=== PATIENT | male | born 1940 | race Caucasian/White ===

== ENCOUNTER 2021-07-31 02:09 | Inpatient (IN) | payer MEDICARE ==
[2021-07-31] MEDS ORDERED: Dextrose 5% in Water 1,000 ML IV PRN (02:34)
[2021-07-31] MEDS ORDERED: HumaLOG 300 UNITS/3 ML VIAL SC PRN (02:34)
[2021-07-31] MEDS ORDERED: Calcium Carbonate 500 MG ChewTAB PO PRN (02:34)
[2021-07-31] MEDS ORDERED: Dextrose 50% Abboject 50 ML SYRINGE SLOW IVP PRN (02:34)
[2021-07-31] MEDS ORDERED: Ondansetron PF 4 MG/2 ML Vial IVP PRN (02:34)
[2021-07-31] MEDS ORDERED: Guaifenesin DM 100-10/5 ML UDCUP PO PRN (02:34)
[2021-07-31] MEDS ORDERED: Potassium Chloride 20 MEQ TAB PO SCH (03:00)
[2021-07-31 03:44] LABS: #Monocytes 1.6 10x3/uL (0.0-1.1); #Neutrophils 10.6 10x3/uL (1.5-8.4); %Basophils 0.2 % (0.0-2.0); %Lymphocytes 7.4 % (18.0-47.0); %Neutrophils 79.9 % (40.0-75.0); Hemoglobin 14.1 g/dL (13.5-17.5); Mean Corpuscular HGB CONC 31.7 g/dL (32.0-36.0); Mean Corpuscular Hemoglobin 28.4 pg (27.0-33.0); Mean Corpuscular Volume 89.7 fl (81.2-95.1); Mean Platelet Volume 11.1 fl (7.4-10.4); Platelet Count 341 10x3/uL (150-450); Red Blood Cell (RBC) Count 4.96 10x6/uL (4.32-5.72); White Blood Cell (WBC) Count 13.2 10x3/uL (3.5-10.5)
[2021-07-31] MEDS: NS 0.9% w/ 20 MEQ KCL 1,000 ML/1,000 ML BAG IV SCH ×3 (03:51→21:49)
[2021-07-31 03:52] LABS: Lactic Acid 2.7 mmol/L (0.5-2.2)
[2021-07-31 04:01] LABS: ALT (SGPT) 10 U/L (8-55); AST (SGOT) 18 U/L (5-34); Albumin 3.9 g/dL (3.4-4.8); Alkaline Phosphatase 63 U/L (40-110); Anion Gap 19 mmol/L (10-20); BUN (Urea Nitrogen) 19 mg/dL (8.4-25.7); CK (CPK) 85 U/L (30-200); Calc. Creatinine Clearance 96 mL/min (70-130); Calcium 8.9 mg/dL (7.8-10.44); Carbon Dioxide 21 mmol/L (23-31); Chloride 102 mmol/L (98-107); Globulin 3.5 g/dL (2.4-3.5); Glucose 172 mg/dL (83-110); Magnesium 1.7 mg/dL (1.6-2.6); Potassium 3.3 mmol/L (3.5-5.1); Protein, Total 7.4 g/dL (5.8-8.1); Sodium 139 mmol/L (136-145)
[2021-07-31 04:24] LABS: CKMB 1.3 ng/mL (0-6.6)
[2021-07-31] MEDS: Potassium Chloride 10 MEQ in Premix Bag 1 BAG IVPB SCH ×3 (04:35→06:49)
[2021-07-31 04:57] VITALS: BMI 21.9
[2021-07-31] MEDS: Gabapentin 100 MG CAP PO SCH ×2 (09:00→10:42)
[2021-07-31] MEDS: Famotidine/PF 20 mg/2ml Vial SLOW IVP SCH ×2 (09:01→21:50)
[2021-07-31] MEDS: Carvedilol 6.25 MG TAB PO SCH ×3 (09:01→16:18)
[2021-07-31] MEDS: Enoxaparin Sodium 40 MG/0.4 ML SYRINGE SC SCH (09:01)
[2021-07-31] MEDS: Aspirin 81 mg Enteric Coated Tablet PO SCH ×2 (09:01→10:42)
[2021-07-31] MEDS: Cefepime 1 GM in Sodium Chloride 0.9% 100 ML IVPB SCH ×2 (09:02→21:50)
[2021-07-31 13:42] LABS: Anion Gap 17 mmol/L (10-20); BUN (Urea Nitrogen) 19 mg/dL (8.4-25.7); Calc. Creatinine Clearance 59 mL/min (70-130); Calcium 8.1 mg/dL (7.8-10.44); Carbon Dioxide 19 mmol/L (23-31); Chloride 107 mmol/L (98-107); Glucose 138 mg/dL (83-110); Magnesium 1.7 mg/dL (1.6-2.6); Potassium 3.7 mmol/L (3.5-5.1); Sodium 139 mmol/L (136-145)
[2021-07-31] MEDS ORDERED: Magnesium 2 GM/50 ML 2 GM in Premix Bag 1 BAG IVPB SCH (14:15)
[2021-07-31] MEDS ORDERED: Sodium Bicarb 50 MEQ/50 ML Abboject 8.4% SYRINGE IVP SCH (15:00)
[2021-07-31] MEDS ORDERED: NS 0.9% w/ 20 MEQ KCL 1,000 ML ONE (16:08)
[2021-07-31 16:22] LABS: Lactic Acid 1.9 mmol/L (0.5-2.2)
[2021-07-31] MEDS: hydrALAZINE 20 MG/ML VIAL SLOW IVP PRN (19:01)
[2021-07-31] MEDS: Vancomycin HCl 1 GM in Sodium Chloride 0.9% 250 ML 250 ML IVPB SCH (21:49)
[2021-07-31] MEDS: Atorvastatin Calcium 10 MG TAB PO SCH (21:50)
[2021-07-31] MEDS: Montelukast Sodium 10 mg Tablet PO SCH (21:50)
[2021-08-01] MEDS: hydrALAZINE 20 MG/ML VIAL SLOW IVP PRN (07:20)
[2021-08-01 08:20] LABS: #Basophils 0.1 10x3/uL (0.0-0.2); #Monocytes 1.5 10x3/uL (0.0-1.1); #Neutrophils 10.1 10x3/uL (1.5-8.4); %Basophils 0.4 % (0.0-2.0); %Lymphocytes 9.1 % (18.0-47.0); %Monocytes 11.7 % (0.0-10.0); %Neutrophils 78.3 % (40.0-75.0); Hemoglobin 12.8 g/dL (13.5-17.5); Mean Corpuscular HGB CONC 31.4 g/dL (32.0-36.0); Mean Corpuscular Hemoglobin 28.6 pg (27.0-33.0); Mean Corpuscular Volume 91.1 fl (81.2-95.1); Mean Platelet Volume 10.9 fl (7.4-10.4); Platelet Count 259 10x3/uL (150-450); RBC Distribution Width 19.5 % (11.5-14.5); Red Blood Cell (RBC) Count 4.47 10x6/uL (4.32-5.72); White Blood Cell (WBC) Count 12.9 10x3/uL (3.5-10.5)
[2021-08-01] MEDS: Cefepime 1 GM in Sodium Chloride 0.9% 100 ML IVPB SCH ×2 (08:30→21:00)
[2021-08-01 08:31] LABS: ALT (SGPT) 16 U/L (8-55); AST (SGOT) 29 U/L (5-34); Albumin 3.4 g/dL (3.4-4.8); Alkaline Phosphatase 44 U/L (40-110); Anion Gap 19 mmol/L (10-20); BUN (Urea Nitrogen) 17 mg/dL (8.4-25.7); Bilirubin, Total 0.8 mg/dL (0.2-1.2); Calc. Creatinine Clearance 66 mL/min (70-130); Calcium 8.3 mg/dL (7.8-10.44); Carbon Dioxide 19 mmol/L (23-31); Chloride 111 mmol/L (98-107); Globulin 2.9 g/dL (2.4-3.5); Glucose 105 mg/dL (83-110); Magnesium 2.2 mg/dL (1.6-2.6); Potassium 4.1 mmol/L (3.5-5.1); Protein, Total 6.3 g/dL (5.8-8.1); Sodium 145 mmol/L (136-145)
[2021-08-01] MEDS: Enoxaparin Sodium 40 MG/0.4 ML SYRINGE SC SCH (08:31)
[2021-08-01] MEDS: Gabapentin 100 MG CAP PO SCH (08:31)
[2021-08-01] MEDS: Aspirin 81 mg Enteric Coated Tablet PO SCH (08:31)
[2021-08-01] MEDS: Carvedilol 6.25 MG TAB PO SCH (08:31)
[2021-08-01] MEDS: NS 0.9% w/ 20 MEQ KCL 1,000 ML/1,000 ML BAG IV SCH (08:31)
[2021-08-01] MEDS: Famotidine/PF 20 mg/2ml Vial SLOW IVP SCH ×2 (08:31→21:46)
[2021-08-01] MEDS: Amlodipine 10 MG TAB PO SCH (09:14)
[2021-08-01] MEDS: Carvedilol 12.5 MG TAB PO SCH (16:25)
[2021-08-01] MEDS ORDERED: Sodium Chloride 0.9% 1,000 ML IV SCH (17:00)
[2021-08-01 20:23] LABS: Vancomycin, Trough 8.1 ug/mL
[2021-08-01] MEDS: Montelukast Sodium 10 mg Tablet PO SCH (21:52)
[2021-08-01] MEDS: Atorvastatin Calcium 10 MG TAB PO SCH (21:52)
[2021-08-01] MEDS: Vancomycin 1.5 GRAM/300 ML BAG 1.5 GM in Premix Bag 1 BAG IVPB SCH (22:00)
[2021-08-01] MEDS: Vancomycin HCl 1 GM in Sodium Chloride 0.9% 250 ML 250 ML IVPB SCH (22:02)
[2021-08-02] MEDS: hydrALAZINE 20 MG/ML VIAL SLOW IVP PRN ×4 (00:54→22:30)
[2021-08-02 06:26] LABS: Anion Gap 17 mmol/L (10-20); BUN (Urea Nitrogen) 15 mg/dL (8.4-25.7); Calc. Creatinine Clearance 70 mL/min (70-130); Calcium 8.6 mg/dL (7.8-10.44); Carbon Dioxide 21 mmol/L (23-31); Chloride 111 mmol/L (98-107); Glucose 97 mg/dL (83-110); Magnesium 2.1 mg/dL (1.6-2.6); Potassium 3.5 mmol/L (3.5-5.1); Sodium 145 mmol/L (136-145)
[2021-08-02 06:37] LABS: #Monocytes 1.2 10x3/uL (0.0-1.1); #Neutrophils 9.3 10x3/uL (1.5-8.4); %Basophils 0.3 % (0.0-2.0); %Lymphocytes 12.4 % (18.0-47.0); %Neutrophils 76.7 % (40.0-75.0); Hemoglobin 12.7 g/dL (13.5-17.5); Mean Corpuscular HGB CONC 31.4 g/dL (32.0-36.0); Mean Corpuscular Hemoglobin 28.2 pg (27.0-33.0); Mean Platelet Volume 10.1 fl (7.4-10.4); Platelet Count 378 10x3/uL (150-450); RBC Distribution Width 18.7 % (11.5-14.5); White Blood Cell (WBC) Count 12.1 10x3/uL (3.5-10.5)
[2021-08-02] MEDS: Famotidine/PF 20 mg/2ml Vial SLOW IVP SCH ×2 (08:31→22:00)
[2021-08-02] MEDS: Cefepime 1 GM in Sodium Chloride 0.9% 100 ML IVPB SCH ×2 (08:31→20:23)
[2021-08-02] MEDS: Enoxaparin Sodium 40 MG/0.4 ML SYRINGE SC SCH (08:31)
[2021-08-02] MEDS: Carvedilol 12.5 MG TAB PO SCH ×2 (08:35→16:48)
[2021-08-02] MEDS: Gabapentin 100 MG CAP PO SCH (08:35)
[2021-08-02] MEDS: Amlodipine 10 MG TAB PO SCH (08:35)
[2021-08-02] MEDS: Aspirin 81 mg Enteric Coated Tablet PO SCH (08:35)
[2021-08-02] MEDS ORDERED: Potassium Chloride 40 MEQ in Dextrose 5%-Lactated Ringers 1,000 ML IV SCH (17:00)
[2021-08-02] MEDS: Montelukast Sodium 10 mg Tablet PO SCH (22:00)
[2021-08-02] MEDS: Atorvastatin Calcium 10 MG TAB PO SCH (22:00)
[2021-08-02] MEDS: Vancomycin 1.5 GRAM/300 ML BAG 1.5 GM in Premix Bag 1 BAG IVPB SCH (22:46)
[2021-08-03] MEDS: Labetalol HCl 100 MG/20 ML VIAL SLOW IVP PRN ×3 (01:10→11:51)
[2021-08-03 06:09] LABS: #Monocytes 0.9 10x3/uL (0.0-1.1); #Neutrophils 5.4 10x3/uL (1.5-8.4); %Basophils 0.4 % (0.0-2.0); %Eosinophils 0.4 % (0.0-6.0); %Lymphocytes 13.3 % (18.0-47.0); %Monocytes 12.1 % (0.0-10.0); %Neutrophils 72.5 % (40.0-75.0); Hemoglobin 11.4 g/dL (13.5-17.5); Mean Corpuscular HGB CONC 32.7 g/dL (32.0-36.0); Mean Corpuscular Hemoglobin 28.7 pg (27.0-33.0); Mean Corpuscular Volume 87.9 fl (81.2-95.1); Mean Platelet Volume 10.1 fl (7.4-10.4); Platelet Count 278 10x3/uL (150-450); Red Blood Cell (RBC) Count 3.97 10x6/uL (4.32-5.72); White Blood Cell (WBC) Count 7.4 10x3/uL (3.5-10.5)
[2021-08-03 06:30] LABS: ALT (SGPT) 19 U/L (8-55); AST (SGOT) 28 U/L (5-34); Albumin 3.1 g/dL (3.4-4.8); Alkaline Phosphatase 43 U/L (40-110); Anion Gap 17 mmol/L (10-20); BUN (Urea Nitrogen) 16 mg/dL (8.4-25.7); Bilirubin, Total 0.9 mg/dL (0.2-1.2); Calc. Creatinine Clearance 72 mL/min (70-130); Calcium 8.3 mg/dL (7.8-10.44); Carbon Dioxide 18 mmol/L (23-31); Chloride 118 mmol/L (98-107); Globulin 2.6 g/dL (2.4-3.5); Glucose 129 mg/dL (83-110); Magnesium 1.9 mg/dL (1.6-2.6); Potassium 3.5 mmol/L (3.5-5.1); Protein, Total 5.7 g/dL (5.8-8.1); Sodium 149 mmol/L (136-145)
[2021-08-03] MEDS: Cefepime 1 GM in Sodium Chloride 0.9% 100 ML IVPB SCH ×3 (10:22→19:57)
[2021-08-03] MEDS: Enoxaparin Sodium 40 MG/0.4 ML SYRINGE SC SCH (10:28)
[2021-08-03] MEDS: Aspirin 81 mg Enteric Coated Tablet PO SCH ×2 (10:29→11:25)
[2021-08-03] MEDS: Amlodipine 10 MG TAB PO SCH ×2 (10:29→11:25)
[2021-08-03] MEDS: Famotidine/PF 20 mg/2ml Vial SLOW IVP SCH ×2 (10:29→21:00)
[2021-08-03] MEDS: Gabapentin 100 MG CAP PO SCH ×2 (10:29→11:25)
[2021-08-03] MEDS: Carvedilol 12.5 MG TAB PO SCH ×3 (10:30→12:12)
[2021-08-03] MEDS: Potassium Chloride 40 MEQ in Dextrose 5%-Lactated Ringers 1,000 ML IV SCH ×2 (11:51→22:36)
[2021-08-03] MEDS ORDERED: Labetalol HCl 100 MG/20 ML VIAL SLOW IVP SCH (14:00)
[2021-08-03] MEDS: Nystatin 500,000 UNITS/5 ML UDCUP SSW SCH ×3 (14:08→22:14)
[2021-08-03] MEDS ORDERED: hydrALAZINE 20 MG/ML VIAL SLOW IVP SCH (14:15)
[2021-08-03] MEDS: Carvedilol 25 MG TAB PO SCH (17:51)
[2021-08-03 21:17] LABS: Vancomycin, Trough 16.9 ug/mL
[2021-08-03] MEDS: Vancomycin 1.5 GRAM/300 ML BAG 1.5 GM in Premix Bag 1 BAG IVPB SCH (22:11)
[2021-08-03] MEDS: Montelukast Sodium 10 mg Tablet PO SCH (22:14)
[2021-08-03] MEDS: Atorvastatin Calcium 10 MG TAB PO SCH (22:14)
[2021-08-04] MEDS: Labetalol HCl 100 MG/20 ML VIAL SLOW IVP PRN (01:50)
[2021-08-04 05:09] LABS: #Basophils 0.1 10x3/uL (0.0-0.2); #Eosinphils 0.2 10x3/uL (0.0-0.5); #Monocytes 0.7 10x3/uL (0.0-1.1); #Neutrophils 3.7 10x3/uL (1.5-8.4); %Eosinophils 4.2 % (0.0-6.0); %Lymphocytes 17.8 % (18.0-47.0); %Monocytes 12.1 % (0.0-10.0); %Neutrophils 64.4 % (40.0-75.0); Hemoglobin 10.6 g/dL (13.5-17.5); Mean Corpuscular HGB CONC 31.3 g/dL (32.0-36.0); Mean Corpuscular Hemoglobin 28.6 pg (27.0-33.0); Mean Corpuscular Volume 91.4 fl (81.2-95.1); Mean Platelet Volume 10.5 fl (7.4-10.4); Platelet Count 300 10x3/uL (150-450); RBC Distribution Width 18.9 % (11.5-14.5); Red Blood Cell (RBC) Count 3.71 10x6/uL (4.32-5.72); White Blood Cell (WBC) Count 5.7 10x3/uL (3.5-10.5)
[2021-08-04 05:11] LABS: Anion Gap 13 mmol/L (10-20); BUN (Urea Nitrogen) 10 mg/dL (8.4-25.7); Calc. Creatinine Clearance 75 mL/min (70-130); Calcium 8.2 mg/dL (7.8-10.44); Carbon Dioxide 21 mmol/L (23-31); Chloride 118 mmol/L (98-107); Glucose 144 mg/dL (83-110); Magnesium 1.8 mg/dL (1.6-2.6); Potassium 3.7 mmol/L (3.5-5.1); Sodium 148 mmol/L (136-145)
[2021-08-04] MEDS: Aspirin 81 mg Enteric Coated Tablet PO SCH (08:27)
[2021-08-04] MEDS: Amlodipine 10 MG TAB PO SCH (08:27)
[2021-08-04] MEDS: Carvedilol 25 MG TAB PO SCH ×2 (08:27→16:01)
[2021-08-04] MEDS: Gabapentin 100 MG CAP PO SCH (08:28)
[2021-08-04] MEDS: Nystatin 500,000 UNITS/5 ML UDCUP SSW SCH ×3 (08:28→16:01)
[2021-08-04] MEDS: Cefepime 1 GM in Sodium Chloride 0.9% 100 ML IVPB SCH (09:26)
[2021-08-04] MEDS: Enoxaparin Sodium 40 MG/0.4 ML SYRINGE SC SCH (09:26)
[2021-08-04] MEDS: Famotidine/PF 20 mg/2ml Vial SLOW IVP SCH ×2 (09:26→22:31)
[2021-08-04] MEDS ORDERED: HYDROcodone/Acetaminophen 5/325 mg Tablet PO PRN (12:23)
[2021-08-04] MEDS ORDERED: Multivitamins, Adult 10 ML, Folic Acid 1 MG, Thiamine HCl 100 MG in Dextrose 5 %-0.45 %... IV SCH (12:30)
[2021-08-04] MEDS: Multivitamins, Adult 10 ML, Folic Acid 1 MG, Thiamine HCl 100 MG in Dextrose 5 %-0.45 %... IV SCH (14:41)
[2021-08-04] MEDS: Montelukast Sodium 10 mg Tablet PO SCH (22:32)
[2021-08-04] MEDS: Atorvastatin Calcium 10 MG TAB PO SCH (22:32)
[2021-08-05] MEDS: Nystatin 500,000 UNITS/5 ML UDCUP SSW SCH ×5 (04:03→20:17)
[2021-08-05] MEDS ORDERED: Lactated Ringer's 1,000 ML IV SCH (05:15)
[2021-08-05] MEDS: Carvedilol 25 MG TAB PO SCH ×3 (09:41→16:42)
[2021-08-05] MEDS: Enoxaparin Sodium 40 MG/0.4 ML SYRINGE SC SCH (09:41)
[2021-08-05] MEDS: Amlodipine 10 MG TAB PO SCH ×2 (09:41→14:26)
[2021-08-05] MEDS: Aspirin 81 mg Enteric Coated Tablet PO SCH ×2 (09:41→14:27)
[2021-08-05] MEDS: Gabapentin 100 MG CAP PO SCH (09:42)
[2021-08-05] MEDS: Famotidine/PF 20 mg/2ml Vial SLOW IVP SCH ×2 (09:42→20:03)
[2021-08-05] MEDS: chlordiazePOXIDE HCl 5 MG CAP PO SCH ×2 (14:24→20:04)
[2021-08-05] MEDS: Multivitamins, Adult 10 ML, Folic Acid 1 MG, Thiamine HCl 100 MG in Dextrose 5 %-0.45 %... IV SCH (14:36)
[2021-08-05] MEDS: Montelukast Sodium 10 mg Tablet PO SCH (20:03)
[2021-08-05] MEDS: Atorvastatin Calcium 10 MG TAB PO SCH (20:03)
[2021-08-05] MEDS: Labetalol HCl 100 MG/20 ML VIAL SLOW IVP PRN (20:22)
[2021-08-06 05:54] LABS: Anion Gap 12 mmol/L (10-20); BUN (Urea Nitrogen) 7 mg/dL (8.4-25.7); Calc. Creatinine Clearance 68 mL/min (70-130); Calcium 8.2 mg/dL (7.8-10.44); Carbon Dioxide 25 mmol/L (23-31); Chloride 108 mmol/L (98-107); Glucose 122 mg/dL (83-110); Potassium 3.5 mmol/L (3.5-5.1); Sodium 141 mmol/L (136-145)
[2021-08-06 06:20] LABS: Hemoglobin 10.8 g/dL (13.5-17.5); Mean Corpuscular HGB CONC 31.8 g/dL (32.0-36.0); Mean Corpuscular Hemoglobin 28.9 pg (27.0-33.0); Mean Corpuscular Volume 90.9 fl (81.2-95.1); Mean Platelet Volume 10.8 fl (7.4-10.4); Platelet Count 320 10x3/uL (150-450); Red Blood Cell (RBC) Count 3.74 10x6/uL (4.32-5.72); White Blood Cell (WBC) Count 8.7 10x3/uL (3.5-10.5)
[2021-08-06 07:17] LABS: MDiff Complete? YES
[2021-08-06 07:22] LABS: Band 15 % (5-11); Lymphocytes 6 % (21-51); Monocytes 10 % (0-10); Neutrophil 64 % (42-75); Reactive Lymphocytes 5 % (0-10)
[2021-08-06 07:24] LABS: Platelet Morphology Comment Appears Adequate; RBC Morphology Normal
[2021-08-06] MEDS: Enoxaparin Sodium 40 MG/0.4 ML SYRINGE SC SCH (09:22)
[2021-08-06] MEDS: Famotidine/PF 20 mg/2ml Vial SLOW IVP SCH ×2 (09:23→21:25)
[2021-08-06] MEDS: hydrALAZINE 20 MG/ML VIAL SLOW IVP PRN ×2 (10:12→14:28)
[2021-08-06 10:57] LABS: Troponin I 0.019 ng/mL (< 0.028)
[2021-08-06] MEDS: Amlodipine 10 MG TAB PO SCH (13:44)
[2021-08-06] MEDS: Carvedilol 25 MG TAB PO SCH ×2 (13:44→17:40)
[2021-08-06] MEDS: Gabapentin 100 MG CAP PO SCH (13:45)
[2021-08-06] MEDS: Aspirin 81 mg Enteric Coated Tablet PO SCH (13:45)
[2021-08-06] MEDS: chlordiazePOXIDE HCl 5 MG CAP PO SCH ×3 (13:45→21:19)
[2021-08-06] MEDS: Nystatin 500,000 UNITS/5 ML UDCUP SSW SCH ×4 (13:45→21:19)
[2021-08-06 15:23] LABS: Bilirubin Neg (Negative); Blood, Urine 150 (Negative); Clarity Clear (Clear); Glucose, Urine (Dipstick) Normal (Negative); Ketone, Urine 15 mg/dL (Negative); Leukocyte Negative (Negative); Nitrite Negative (Negative); Protein, Urine (Dipstick) 500 mg/dl (Neg-Trace); Urobilinogen Normal mg/dL (Less than 2)
[2021-08-06 15:27] LABS: Urine Culture Reflex No No
[2021-08-06 15:46] LABS: Bacteria/HPF None Seen HPF (None Seen); Oval Fat Bodies/HPF 1+ HPF (None Seen); Renal Epithelial 0-3 HPF (None Seen); Squamous Epithelial 0-3 HPF (0-3); Transitional Epithelial 0-3 HPF (None Seen)
[2021-08-06] MEDS: Multivitamins, Adult 10 ML, Folic Acid 1 MG, Thiamine HCl 100 MG in Dextrose 5 %-0.45 %... IV SCH (16:10)
[2021-08-06] MEDS: Atorvastatin Calcium 10 MG TAB PO SCH (21:19)
[2021-08-06] MEDS: Montelukast Sodium 10 mg Tablet PO SCH (21:19)
[2021-08-07] MEDS: Labetalol HCl 100 MG/20 ML VIAL SLOW IVP PRN (04:09)
[2021-08-07 04:28] LABS: #Monocytes 1.6 10x3/uL (0.0-1.1); #Neutrophils 7.2 10x3/uL (1.5-8.4); %Basophils 0.4 % (0.0-2.0); %Eosinophils 0.1 % (0.0-6.0); %Monocytes 16.3 % (0.0-10.0); %Neutrophils 71.7 % (40.0-75.0); Hemoglobin 10.6 g/dL (13.5-17.5); Mean Corpuscular HGB CONC 32.9 g/dL (32.0-36.0); Mean Corpuscular Hemoglobin 29.4 pg (27.0-33.0); Mean Corpuscular Volume 89.4 fl (81.2-95.1); Mean Platelet Volume 10.2 fl (7.4-10.4); Platelet Count 305 10x3/uL (150-450); RBC Distribution Width 18.9 % (11.5-14.5)
[2021-08-07 04:40] LABS: Anion Gap 14 mmol/L (10-20); BUN (Urea Nitrogen) 10 mg/dL (8.4-25.7); CRP (Inflammatory) 18.59 mg/dL (= or < 0.5); Calc. Creatinine Clearance 73 mL/min (70-130); Calcium 8.1 mg/dL (7.8-10.44); Carbon Dioxide 19 mmol/L (23-31); Chloride 109 mmol/L (98-107); Glucose 125 mg/dL (83-110); Potassium 3.4 mmol/L (3.5-5.1); Sodium 139 mmol/L (136-145)
[2021-08-07 05:31] LABS: Platelet Morphology Comment Appears Adequate; RBC Morphology Normal
[2021-08-07] MEDS ORDERED: Nystatin 500,000 UNITS/5 ML UDCUP ONE (08:48)
[2021-08-07] MEDS: Gabapentin 100 MG CAP PO SCH (10:15)
[2021-08-07] MEDS: Amlodipine 10 MG TAB PO SCH (10:15)
[2021-08-07] MEDS: Carvedilol 25 MG TAB PO SCH ×2 (10:15→17:25)
[2021-08-07] MEDS: Aspirin 81 mg Enteric Coated Tablet PO SCH ×2 (10:16→13:55)
[2021-08-07] MEDS: Famotidine/PF 20 mg/2ml Vial SLOW IVP SCH ×2 (10:16→20:37)
[2021-08-07] MEDS: Enoxaparin Sodium 40 MG/0.4 ML SYRINGE SC SCH (10:16)
[2021-08-07] MEDS: Nystatin 500,000 UNITS/5 ML UDCUP SSW SCH ×4 (10:17→20:44)
[2021-08-07] MEDS: chlordiazePOXIDE HCl 5 MG CAP PO SCH ×3 (11:02→20:44)
[2021-08-07] MEDS ORDERED: Aspirin Chewable 81 MG TAB PO SCH (11:30)
[2021-08-07] MEDS: Atorvastatin Calcium 10 MG TAB PO SCH (20:44)
[2021-08-07] MEDS: Montelukast Sodium 10 mg Tablet PO SCH (20:44)
[2021-08-08] MEDS: Carvedilol 25 MG TAB PO SCH ×2 (09:57→19:05)
[2021-08-08] MEDS: Acetaminophen 325 MG TAB PO PRN ×2 (09:57→21:45)
[2021-08-08] MEDS: Amlodipine 10 MG TAB PO SCH (09:59)
[2021-08-08] MEDS: Nystatin 500,000 UNITS/5 ML UDCUP SSW SCH ×4 (10:00→21:40)
[2021-08-08] MEDS: Gabapentin 100 MG CAP PO SCH (10:00)
[2021-08-08] MEDS: Enoxaparin Sodium 40 MG/0.4 ML SYRINGE SC SCH (10:00)
[2021-08-08] MEDS: Aspirin Chewable 81 MG TAB PO SCH (10:00)
[2021-08-08] MEDS: Famotidine/PF 20 mg/2ml Vial SLOW IVP SCH ×2 (10:01→21:40)
[2021-08-08] MEDS: chlordiazePOXIDE HCl 5 MG CAP PO SCH (10:49)
[2021-08-08] MEDS: Atorvastatin Calcium 10 MG TAB PO SCH (21:40)
[2021-08-08] MEDS: Montelukast Sodium 10 mg Tablet PO SCH (21:40)
[2021-08-09] MEDS: Nystatin 500,000 UNITS/5 ML UDCUP SSW SCH ×4 (10:55→21:22)
[2021-08-09] MEDS: Famotidine/PF 20 mg/2ml Vial SLOW IVP SCH ×2 (10:56→21:22)
[2021-08-09] MEDS: Gabapentin 100 MG CAP PO SCH (10:56)
[2021-08-09] MEDS: Enoxaparin Sodium 40 MG/0.4 ML SYRINGE SC SCH (10:56)
[2021-08-09] MEDS: Aspirin Chewable 81 MG TAB PO SCH (10:56)
[2021-08-09] MEDS: Amlodipine 10 MG TAB PO SCH (10:56)
[2021-08-09] MEDS: Carvedilol 25 MG TAB PO SCH ×3 (10:57→18:30)
[2021-08-09 15:29] LABS: Anion Gap 13 mmol/L (10-20); BUN (Urea Nitrogen) 14 mg/dL (8.4-25.7); Calc. Creatinine Clearance 76 mL/min (70-130); Carbon Dioxide 21 mmol/L (23-31); Chloride 111 mmol/L (98-107); Glucose 115 mg/dL (83-110); Potassium 3.3 mmol/L (3.5-5.1); Sodium 142 mmol/L (136-145)
[2021-08-09] MEDS: Acetaminophen 325 MG TAB PO PRN (17:06)
[2021-08-09] MEDS: Atorvastatin Calcium 10 MG TAB PO SCH (21:22)
[2021-08-09] MEDS: Montelukast Sodium 10 mg Tablet PO SCH (21:22)
[2021-08-10 09:12] LABS: Anion Gap 13 mmol/L (10-20); BUN (Urea Nitrogen) 12 mg/dL (8.4-25.7); Calc. Creatinine Clearance 78 mL/min (70-130); Calcium 8.2 mg/dL (7.8-10.44); Carbon Dioxide 22 mmol/L (23-31); Chloride 113 mmol/L (98-107); Glucose 90 mg/dL (83-110); Potassium 3.3 mmol/L (3.5-5.1); Sodium 145 mmol/L (136-145)
[2021-08-10] MEDS: Carvedilol 25 MG TAB PO SCH ×2 (10:42→17:18)
[2021-08-10] MEDS: Enoxaparin Sodium 40 MG/0.4 ML SYRINGE SC SCH (10:42)
[2021-08-10] MEDS: Aspirin Chewable 81 MG TAB PO SCH (10:43)
[2021-08-10] MEDS: Gabapentin 100 MG CAP PO SCH (10:43)
[2021-08-10] MEDS: Famotidine/PF 20 mg/2ml Vial SLOW IVP SCH ×2 (10:43→21:23)
[2021-08-10] MEDS: Nystatin 500,000 UNITS/5 ML UDCUP SSW SCH ×4 (10:44→21:21)
[2021-08-10] MEDS: Amlodipine 10 MG TAB PO SCH (10:45)
[2021-08-10] MEDS ORDERED: Potassium Chloride 20 MEQ TAB PO SCH (12:00)
[2021-08-10] MEDS: Montelukast Sodium 10 mg Tablet PO SCH (21:21)
[2021-08-10] MEDS: Atorvastatin Calcium 10 MG TAB PO SCH (21:21)
[2021-08-11] MEDS: hydrALAZINE 20 MG/ML VIAL SLOW IVP PRN ×2 (01:47→06:01)
[2021-08-11] MEDS: Gabapentin 100 MG CAP PO SCH (09:07)
[2021-08-11] MEDS: Carvedilol 25 MG TAB PO SCH (09:07)
[2021-08-11] MEDS: Aspirin Chewable 81 MG TAB PO SCH (09:12)
[2021-08-11] MEDS: Famotidine/PF 20 mg/2ml Vial SLOW IVP SCH (09:22)
[2021-08-11] MEDS: Nystatin 500,000 UNITS/5 ML UDCUP SSW SCH (09:22)
[2021-08-11] MEDS: Enoxaparin Sodium 40 MG/0.4 ML SYRINGE SC SCH (09:22)
[2021-08-11 09:52] LABS: Anion Gap 13 mmol/L (10-20); BUN (Urea Nitrogen) 10 mg/dL (8.4-25.7); Calc. Creatinine Clearance 76 mL/min (70-130); Calcium 8.2 mg/dL (7.8-10.44); Carbon Dioxide 22 mmol/L (23-31); Chloride 113 mmol/L (98-107); Glucose 107 mg/dL (83-110); Potassium 3.7 mmol/L (3.5-5.1); Sodium 144 mmol/L (136-145)
[2021-08-11 12:41] VITALS: BP 102/54; TEMP 98.1
[2021-08-11] MEDS ORDERED: Amlodipine 5 MG TAB PO SCH (21:00)
== END 2021-08-11 15:40 | DRG 304 ==
LOC: CSHTELE 02:09
PROVIDERS: ADMIT Student in an Organized Health Care Education/Training Program; ATTEND Internal Medicine
PROC: HZ2ZZZZ Detoxification Services for Substance Abuse Treatment (ICD-10-PCS; principal; 2021-08-04)
DX: I16.0 Hypertensive urgency (principal); G93.41 Metabolic encephalopathy; E87.2 Acidosis; F11.121 Opioid abuse with intoxication delirium; E87.0 Hyperosmolality and hypernatremia; F10.139 Alcohol abuse with withdrawal, unspecified; R77.8 Other specified abnormalities of plasma proteins; E11.65 Type 2 diabetes mellitus with hyperglycemia; I50.9 Heart failure, unspecified; I11.0 Hypertensive heart disease with heart failure; E86.0 Dehydration; E87.6 Hypokalemia; G89.29 Other chronic pain; M54.50 Low back pain, unspecified; J44.9 Chronic obstructive pulmonary disease, unspecified; E78.2 Mixed hyperlipidemia; F03.90 Unspecified dementia, unspecified severity, without behavioral disturbance, psychotic disturbance, mood disturbance, and anxiety; E11.40 Type 2 diabetes mellitus with diabetic neuropathy, unspecified; I25.10 Atherosclerotic heart disease of native coronary artery without angina pectoris; Z95.5 Presence of coronary angioplasty implant and graft; Z79.899 Other long term (current) drug therapy; Z79.82 Long term (current) use of aspirin; Z79.84 Long term (current) use of oral hypoglycemic drugs
CPT/HCPCS: 36415; 36416; 70450; 70551; 71045; 71275; 74177; 80048; 80053; 80202; 81001; 82550; 82553; 83605; 83735; 83880; 84145; 84425; 84484; 85025; 86140; 87040; 87086; 93005; 93010; 94640; 94760; J0360; J0692; J1650; J3370; J3411; J3475; J3480; J3490; J7042; J7050; J7120; J7620; S0028